=== PATIENT | male | born 1985 | race Caucasian/White ===

== ENCOUNTER 2017-08-25 11:35 | Inpatient (IN) | payer OTHER ==
[~2017-08-25] VITALS: Ht 182.9 cm; Wt 115.7 kg
[2017-08-25] MEDS ORDERED: ONDANSETRON ODT 4 MG TAB.RAPDIS SL PRN (21:00)
[2017-08-25] MEDS ORDERED: DICYCLOMINE HCL 20 MG TABLET PO PRN (21:00)
[2017-08-25] MEDS ORDERED: MAG HYDROX/AL HYDROX/SIMETH 30 ML LIQUID UDC PO PRN (21:00)
[2017-08-25] MEDS ORDERED: LORAZEPAM 2 MG/1 ML VIAL IM PRN (21:00)
[2017-08-25] MEDS ORDERED: THIAMINE HCL 200 MG/2 ML VIAL IM ONE (21:00)
[2017-08-25] MEDS ORDERED: diphenhydrAMINE 50 MG CAPSULE PO PRN (21:00)
[2017-08-25] MEDS ORDERED: ACETAMINOPHEN 325 MG TABLET PO PRN (21:00)
[2017-08-25] MEDS ORDERED: MAGNESIUM HYDROXIDE 30 ML LIQUID UDC PO PRN (21:00)
[2017-08-25] MEDS ORDERED: LOPERAMIDE HCL 2 MG CAPSULE PO PRN ×2 (21:00)
[2017-08-25] MEDS ORDERED: LORAZEPAM 1 MG TABLET PO PRN ×2 (21:00)
[2017-08-25] MEDS ORDERED: MIRALAX 17 GM POWD.PACK PO PRN (21:00)
[2017-08-25] MEDS ORDERED: ONDANSETRON 4 MG/2 ML VIAL IM PRN (21:00)
[2017-08-25 22:27] LABS: ETHANOL < 3 MG/DL (0-0)
[2017-08-25] MEDS ORDERED: LORAZEPAM 1 MG TABLET PO SCH (22:30)
[2017-08-25 22:32] LABS: ALANINE AMINOTRANSFERASE 68 U/L (16-63); ALKALINE PHOSPHATASE 69 U/L (50-136); AMYLASE 30 U/L (25-115); ASPARTATE AMINOTRANSFERASE 26 U/L (15-37); BILIRUBIN,TOTAL 0.8 mg/dL (0.2-1.0); CARBON DIOXIDE 25 mmol/L (21-32); CHLORIDE 102 mmol/L (98-107); CREATININE 1.2 mg/dL (0.6-1.3); GLUCOSE 107 mg/dL (74-106); MAGNESIUM 2.3 mg/dL (1.8-2.4); POTASSIUM 3.3 mmol/L (3.5-5.1); TOTAL PROTEIN, SERUM 8.1 g/dL (6.4-8.2); UREA NITROGEN, BLOOD 14 mg/dL (7-18)
[2017-08-25 22:37] LABS: BASOPHILS # (AUTO) 0.1 K/uL (0.0-8.0); BASOPHILS % (AUTO) 1.1 % (0.0-2.0); EOSINOPHILS # (AUTO) 0.2 K/uL (0.0-0.7); EOSINOPHILS % (AUTO) 2.4 % (0.0-7.0); HEMATOCRIT 51.5 % (36.7-47.1); HEMOGLOBIN 18.2 g/dL (12.5-16.3); LYMPHOCYTES # (AUTO) 2.1 K/uL (20.0-40.0); LYMPHOCYTES % (AUTO) 28.5 % (20.5-51.5); MEAN CORPUSCULAR HEMOGLOBIN 31.8 uug (23.8-33.4); MEAN CORPUSCULAR HGB CONC 35 g/dL (32.5-36.3); MEAN CORPUSCULAR VOLUME 90.2 fL (73.0-96.2); MONOCYTES # (AUTO) 0.7 K/uL (2.0-10.0); NEUTROPHILS # (AUTO) 4.2 K/uL (1.8-8.9); PLATELET COUNT (AUTO) 247 K/uL (152-348); RED BLOOD CELL COUNT(AUTO) 5.71 MIL/uL (4.06-5.63); WHITE BLOOD COUNT (AUTO) 7.2 K/uL (3.6-10.2)
[2017-08-25] MEDS ORDERED: THIAMINE HCL 200 MG/2 ML VIAL ONE (23:25)
[2017-08-25] MEDS ORDERED: LORAZEPAM 1 MG TABLET ONE (23:25)
[2017-08-25 23:27] LABS: *AMPHETAMINE, URINE NEGATIVE (NEGATIVE); *BARBITURATE, URINE NEGATIVE (NEGATIVE); *CANNABINOID, URINE NEGATIVE (NEGATIVE); *COCCAINE, URINE NEGATIVE (NEGATIVE); *OPIATE, URINE NEGATIVE (NEGATIVE); *PHENCYCLIDINE SCREEN,URINE NEGATIVE (NEGATIVE)
[2017-08-26] VITALS: BP 129/94
[2017-08-26] MEDS ORDERED: KETO10TA2 PO (00:42)
[2017-08-26] MEDS ORDERED: LORA-114 PO (00:42)
[2017-08-26] MEDS ORDERED: BENZ7GEL6 MM (00:42)
[2017-08-26] MEDS ORDERED: DIPH25CA83 PO (00:42)
[2017-08-26] MEDS ORDERED: ESCI20TA PO (00:42)
[2017-08-26] MEDS ORDERED: DICY10CA13 PO (00:42)
[2017-08-26] MEDS ORDERED: FLUV50TA3 PO (00:42)
[2017-08-26 08:00] VITALS: BP 125/89
[2017-08-26] MEDS ORDERED: TUBERCULIN,PURIF.PROT.DERIV. 5 TU/0.1 ML TEST ID ONE (09:00)
[2017-08-26] MEDS ORDERED: LORAZEPAM 1 MG TABLET PO SCH ×3 (09:00→21:00)
[2017-08-26] MEDS ORDERED: POTASSIUM CHLORIDE 10 MEQ CAPSULE.SA PO ONE (09:00)
[2017-08-26] MEDS ORDERED: BENZOCAINE PO PRN (09:30)
[2017-08-26] MEDS: THIAMINE HCL 100 MG TABLET PO SCH (09:53)
[2017-08-26] MEDS: FOLIC ACID 1 MG TABLET PO SCH (09:53)
[2017-08-26] MEDS: MULTIVITAMINS,THERAPEUTIC TABLET PO SCH (09:53)
[2017-08-26] MEDS ORDERED: PNEUMOCOCCAL 23-VAL P-SAC VAC 0.5 ML VIAL IM ONE (10:00)
[2017-08-26] MEDS ORDERED: INFLUENZA VACCINE 2017-2018 0.5 ML DISP.SYRIN IM ONE (10:00)
[2017-08-26] MEDS: LORATADINE 10 MG TABLET PO SCH (10:30)
[2017-08-26 12:00] VITALS: BP 122/84
[2017-08-26] MEDS ORDERED: Medication Not On Formulary EA (Escitalopram Oxalate (Lexapro) 1 TAB) PO SCH (15:15)
[2017-08-26 16:00] VITALS: BP 129/88
[2017-08-26] MEDS: ESCITALOPRAM OXALATE 10 MG TABLET PO SCH (18:26)
[2017-08-26] MEDS: FLUVOXAMINE MALEATE 50 MG TABLET PO SCH (18:46)
[2017-08-26 20:00] VITALS: BP 144/94
[2017-08-26] MEDS: IBUPROFEN 400 MG TABLET PO PRN (20:54)
[2017-08-26] MEDS: CLONIDINE HCL 0.1 MG TABLET PO PRN (20:54)
[2017-08-27 08:06] LABS: HEPATITIS B SURFACE AG Negative (Negative)
[2017-08-27 08:27] VITALS: BP 122/72
[2017-08-27] MEDS: THIAMINE HCL 100 MG TABLET PO SCH (08:30)
[2017-08-27] MEDS: FOLIC ACID 1 MG TABLET PO SCH (08:30)
[2017-08-27] MEDS: ESCITALOPRAM OXALATE 10 MG TABLET PO SCH (08:30)
[2017-08-27] MEDS: LORATADINE 10 MG TABLET PO SCH (08:30)
[2017-08-27] MEDS: MULTIVITAMINS,THERAPEUTIC TABLET PO SCH (08:30)
[2017-08-27] MEDS: LORAZEPAM 1 MG TABLET PO SCH ×2 (08:30→20:13)
[2017-08-27] MEDS ORDERED: LORAZEPAM 1 MG TABLET PO SCH (09:00)
[2017-08-27] MEDS ORDERED: PATIENT MAY USE OWN MED- MD OK PO SCH (09:00)
[2017-08-27 12:47] VITALS: BP 141/86
[2017-08-27] MEDS: FLUVOXAMINE MALEATE 50 MG TABLET PO SCH (17:20)
[2017-08-27 17:25] VITALS: BP 141/86
[2017-08-27 20:00] VITALS: BP 118/58
[2017-08-28] VITALS (7 sets, daily range): BP systolic 98–141; BP diastolic 46–92
[2017-08-28] MEDS: FOLIC ACID 1 MG TABLET PO SCH (08:36)
[2017-08-28] MEDS: ESCITALOPRAM OXALATE 10 MG TABLET PO SCH (08:37)
[2017-08-28] MEDS: MULTIVITAMINS,THERAPEUTIC TABLET PO SCH (08:37)
[2017-08-28] MEDS: LORATADINE 10 MG TABLET PO SCH (08:37)
[2017-08-28] MEDS: THIAMINE HCL 100 MG TABLET PO SCH (08:40)
[2017-08-28] MEDS ORDERED: LORAZEPAM 1 MG TABLET PO SCH ×2 (09:00)
[2017-08-28] MEDS ORDERED: DIPH50CA37 PO (14:42)
[2017-08-28] MEDS ORDERED: IBUP-1953 PO (14:42)
[2017-08-28] MEDS ORDERED: LORA-114 PO (14:42)
[2017-08-28] MEDS ORDERED: DICY20TA28 PO (14:42)
[2017-08-28] MEDS: FLUVOXAMINE MALEATE 50 MG TABLET PO SCH (17:08)
[2017-08-28] MEDS: IBUPROFEN 400 MG TABLET PO PRN (22:21)
[2017-08-28] MEDS: CLONIDINE HCL 0.1 MG TABLET PO PRN (22:22)
[2017-08-29 08:00] VITALS: BP 121/71
[2017-08-29] MEDS: THIAMINE HCL 100 MG TABLET PO SCH (08:09)
[2017-08-29] MEDS: FOLIC ACID 1 MG TABLET PO SCH (08:09)
[2017-08-29] MEDS: LORATADINE 10 MG TABLET PO SCH (08:09)
[2017-08-29] MEDS: ESCITALOPRAM OXALATE 10 MG TABLET PO SCH (08:09)
[2017-08-29] MEDS: MULTIVITAMINS,THERAPEUTIC TABLET PO SCH (08:09)
[2017-08-29] MEDS ORDERED: LORAZEPAM 1 MG TABLET PO SCH (09:00)
== END 2017-08-29 09:30 | disposition other institution (70) | DRG 895 ==
LOC: SRC 20:52
PROVIDERS: ADMIT Internal Medicine; ATTEND Internal Medicine
PROC: HZ2ZZZZ Detoxification Services for Substance Abuse Treatment (ICD-10-PCS; principal; 2017-08-25)
PROC: HZ41ZZZ Group Counseling for Substance Abuse Treatment, Behavioral (ICD-10-PCS; 2017-08-26)
PROC: HZ31ZZZ Individual Counseling for Substance Abuse Treatment, Behavioral (ICD-10-PCS; 2017-08-28)
DX: F10.230 Alcohol dependence with withdrawal, uncomplicated (principal); F33.2 Major depressive disorder, recurrent severe without psychotic features; I15.9 Secondary hypertension, unspecified; K70.9 Alcoholic liver disease, unspecified; F42.9 Obsessive-compulsive disorder, unspecified; Y90.0 Blood alcohol level of less than 20 mg/100 ml; Z81.1 Family history of alcohol abuse and dependence; Z81.3 Family history of other psychoactive substance abuse and dependence; Z83.3 Family history of diabetes mellitus; Z82.49 Family history of ischemic heart disease and other diseases of the circulatory system; K58.1 Irritable bowel syndrome with constipation; E87.6 Hypokalemia; J30.2 Other seasonal allergic rhinitis; F17.220 Nicotine dependence, chewing tobacco, uncomplicated
CPT/HCPCS: 36415; 70030-TC; 80307; 83735; 85025; 86592; 86705; 86803; 87340; 87806; 90686; 90732; A4663; G0480; J3411; Q0162; Q0163